=== PATIENT | female | born 1945 | race Caucasian/White ===

== ENCOUNTER 2018-09-15 13:15 | Outpatient (CLI) | payer MEDICARE ==
--- NOTE | 2018-09-25 11:50 | MMO ---
BILATERAL SCREENING MAMMOGRAM: Date: 09/15/18 COMPARISON: 06/04/14. HISTORY: Annual screening exam. This patient's mammogram was interpreted with the assistance of computer-aided detection. FINDINGS: Scattered fibroglandular changes of both breasts are present. Calcifications are seen in both breasts , these appear stable. There is no dominant mass, suspicious calcification, or other sign of malignan cy. IMPRESSION: BIRADS 2: Benign Finding(s) POS: [facility]
== END 2018-09-15 13:16 | disposition home or self-care (01) ==
LOC: SCSMAMMO 13:15
PROVIDERS: ATTEND Family Medicine
DX: Z12.31 Encounter for screening mammogram for malignant neoplasm of breast (principal)
CPT/HCPCS: 77067

== ENCOUNTER 2022-07-02 11:05 | Emergency (ER) | payer MEDICARE, OTHER ==
[~2022-07-02 11:05] MED LIST: Iopamidol-370 76% 500 ML 1 ML ONE
[2022-07-02 13:03] LABS: #Eosinphils 0.1 thou/uL (0.0-0.7); #Lymphocytes 1.7 thou/uL (1.20-3.40); #Monocytes 0.7 thou/uL (0.11-0.59); #Neutrophils 9.3 thou/uL (1.40-6.50); %Basophils 0.4 % (0.0-1.0); %Eosinophils 0.5 % (0.0-10.0); %Lymphocytes 14.2 % (21.0-51.0); %Monocytes 6.2 % (0.0-10.0); %Neutrophils 78.7 % (42.0-75.0); Hemoglobin 13.7 g/dL (12.0-16.0); Mean Corpuscular HGB CONC 32.2 g/dL (32.0-36.0); Mean Corpuscular Hemoglobin 28.1 pg (27.0-31.0); Mean Corpuscular Volume 87.4 fL (78.0-98.0); Mean Platelet Volume 7.6 fL (7.4-10.4); Platelet Count 313 thou/uL (130-400); RBC Distribution Width 13.2 % (11.5-14.5); Red Blood Cell (RBC) Count 4.88 mill/uL (4.20-5.40); White Blood Cell (WBC) Count 11.8 thou/uL (4.8-10.8)
[2022-07-02 13:22] LABS: ALT (SGPT) 23 U/L (8-55); AST (SGOT) 19 U/L (5-34); Albumin 4.5 g/dL (3.4-4.8); Alkaline Phosphatase 95 U/L (40-110); Anion Gap 19 mmol/L (10-20); BUN (Urea Nitrogen) 24 mg/dL (9.8-20.1); Bilirubin, Total 0.7 mg/dL (0.2-1.2); CK (CPK) 69 U/L (29-168); Calc. Creatinine Clearance 0 mL/min (70-130); Calcium 9.9 mg/dL (7.8-10.44); Carbon Dioxide 22 mmol/L (23-31); Chloride 96 mmol/L (98-107); Estimated GFR 63; Globulin 2.5 g/dL (2.4-3.5); Glucose 122 mg/dL (83-110); Lipase 11 U/L (8-78); Potassium 4.2 mmol/L (3.5-5.1); Sodium 133 mmol/L (136-145)
[2022-07-02] MEDS ORDERED: Ondansetron PF 4 MG/2 ML Vial ONE (14:14)
[2022-07-02] MEDS ORDERED: Morphine 4 MG/ML VIAL ONE (14:14)
== END 2022-07-02 15:35 | disposition home or self-care (01) ==
LOC: ERS 11:05
DX: S29.012A Strain of muscle and tendon of back wall of thorax, initial encounter (principal); I10 Essential (primary) hypertension; E03.9 Hypothyroidism, unspecified; X50.0XXA Overexertion from strenuous movement or load, initial encounter
CPT/HCPCS: 36415; 71275; 80053; 82550; 83690; 84484; 85025; 96374; 96375; J2270; J2405; Q9967